=== PATIENT | female | born 1950 | race Two or more races ===

== ENCOUNTER → 2022-07-04 | Day surgery (SDC) | payer OTHER ==
[~2022-07-04] VITALS: Ht 154.9 cm; Wt 74.8 kg
[~2022-07-04] MED LIST: ESCI-34 PO; PANT40TA2 PO; PREDPOW63 PO
== END | disposition home or self-care (01) ==
LOC: SUR 06:02 → EDUNIT# 06:45
PROVIDERS: ATTEND Orthopaedic Surgery
DX: M16.10 Unilateral primary osteoarthritis, unspecified hip (principal); Z53.8 Procedure and treatment not carried out for other reasons; Z20.822 Contact with and (suspected) exposure to COVID-19
CPT/HCPCS: 86850; 86900; 86901; U0003

== ENCOUNTER 2022-08-15 07:24 | Inpatient (IN) | payer OTHER ==
[~2022-08-15] VITALS: Ht 154.9 cm; Wt 81.0 kg
[2022-08-15] MEDS ORDERED: ceFAZolin 1GM/50ML 100 ML IV ONE (07:35)
[2022-08-15] MEDS ORDERED: BUPIVACAINE 0.25% INJ 50ML VIAL ONE (08:38)
[2022-08-15] MEDS ORDERED: EPINEPHrine HCL 1 MG/1 ML AMP ONE (08:38)
[2022-08-15] MEDS ORDERED: TRANEXAMIC ACID 20 ML ONE (08:38)
[2022-08-15] MEDS ORDERED: VANCOMYCIN HCL 1000 MG VL ONE (08:39)
[2022-08-15] MEDS ORDERED: KETOROLAC TROMETH 30 MG/ML 1ML VIAL ONE (08:45)
[2022-08-15] MEDS ORDERED: MORPHINE SULF PF 5 MG/10 ML VIAL ONE (08:53)
[2022-08-15] MEDS ORDERED: fentaNYL CITRATE 100 MCG/2 ML VL ONE (09:15)
[2022-08-15] MEDS ORDERED: MIDAZOLAM HCL 2MG/2ML 2ml VIAL (1mg/ml) ONE ×2 (09:16→10:11)
[2022-08-15] MEDS ORDERED: TETRACAINE 1% INJ 2 ML VIAL IJ ONE (09:17)
[2022-08-15] MEDS ORDERED: DexAMETHasone SOD PHOS 10MG/1ML VIAL INJ ONE (10:00)
[2022-08-15] MEDS ORDERED: PROPOFOL 10 MG/ML 20 ML IV ONE (10:00)
[2022-08-15] MEDS ORDERED: MORPHINE SULFATE 4 MG/ML SYR/VIAL IV PRN (10:45)
[2022-08-15] MEDS ORDERED: ONDANSETRON HCL 4 MG/2 ML VIAL IV PRN ×2 (10:45→11:30)
[2022-08-15] MEDS ORDERED: HYDROmorphone HCL 2 MG/ML VL/or syr IV PRN (10:45)
[2022-08-15] MEDS ORDERED: ePHEDrine SULFATE 50 MG/ML AMP IV PRN (10:45)
[2022-08-15] MEDS ORDERED: MIDAZOLAM HCL 2MG/2ML 2ml VIAL (1mg/ml) IV PRN (10:45)
[2022-08-15] MEDS ORDERED: LABETALOL HCL 5 MG/ML 4ML SYRINGE IV PRN (10:45)
[2022-08-15] MEDS ORDERED: MORPHINE SULFATE INJ 2 MG/ml SYRG IV PRN (11:30)
[2022-08-15] MEDS ORDERED: NITROGLYCERIN 0.4 MG SL TAB SL PRN (11:30)
[2022-08-15] MEDS ORDERED: oxyCODONE HCL 5MG TAB PO PRN ×2 (11:30)
[2022-08-15] MEDS: ACETAMINOPHEN 325 MG TAB PO SCH ×3 (12:00→23:52)
[2022-08-15] MEDS: SODIUM CHLORIDE 0.9% 1,000 ML IV SCH ×2 (12:00→16:47)
[2022-08-15 13:00] VITALS: BP 138/74
[2022-08-15] MEDS: methylPREDNISolone SOD SUCC 125 MG/2 ML VL IV SCH ×2 (14:00→22:42)
[2022-08-15 16:32] VITALS: BP 123/60
[2022-08-15] MEDS: ceFAZolin 2 GM/D5W100ml 100 ML IV SCH ×2 (17:45→22:41)
[2022-08-15] MEDS ORDERED: Escitalopram 20 MG TAB PO SCH (22:00)
[2022-08-15] MEDS: PREGABALIN 25 MG CAP PO SCH (22:42)
[2022-08-16 00:58] VITALS: BP 110/53
[2022-08-16] MEDS: SODIUM CHLORIDE 0.9% 1,000 ML IV SCH ×2 (02:00→09:33)
[2022-08-16 05:23] VITALS: BP 110/51
[2022-08-16 06:14] LABS: Basophils # (auto) 0 10 ^3/uL (0-0.2); Basophils % (auto) 0.1 % (0.0-2.0); Eosinophils # (auto) 0 10 ^3/uL (0-0.8); Hematocrit 27.1 % (36.0-46.0); Lymphocytes # (auto) 0.5 10 ^3/uL (0.4-5.4); Lymphocytes % (auto) 5.9 % (10.0-50.0); Mean Corpuscular Hemoglobin 29.5 pg (28.0-32.0); Mean Corpuscular Hgb Conc. 33.3 g/dL (32.0-36.0); Mean Corpuscular Volume 88.6 fL (80.0-100.0); Monocytes # (auto) 0.4 10 ^3/uL (0-1.3); Monocytes % (auto) 5.2 % (0.0-12.0); Neutrophils # (auto) 7.5 10 ^3/uL (1.6-8.6); Neutrophils % (auto) 88.8 % (37.0-80.0); Red Blood Cells 3.06 10^6/uL (4.0-5.20); Red Cell Distribution Width 15.2 % (11.8-14.3); White Blood Cell 8.4 10^3/uL (4.4-10.8)
[2022-08-16 06:34] LABS: BUN/Creatinine Ratio 24.7 (10.0-20.0); Calcium 8.1 mg/dL (8.5-10.1); Potassium 3.7 mmol/L (3.5-5.1)
[2022-08-16] MEDS: methylPREDNISolone SOD SUCC 125 MG/2 ML VL IV SCH (06:53)
[2022-08-16] MEDS: ACETAMINOPHEN 325 MG TAB PO SCH ×2 (06:57→11:53)
[2022-08-16 09:00] VITALS: BP 100/48
[2022-08-16] MEDS: PREGABALIN 25 MG CAP PO SCH (09:51)
[2022-08-16] MEDS ORDERED: APIXABAN 2.5 MG TAB PO SCH (10:00)
[2022-08-16] MEDS ORDERED: PANTOPRAZOLE 40 MG TAB PO SCH (10:00)
[2022-08-16] MEDS ORDERED: predniSONE 5 MG TAB PO SCH (10:00)
[2022-08-16 13:00] VITALS: BP 114/56
== END 2022-08-16 14:27 | disposition home health service (06) | DRG 470 ==
LOC: SUR 07:24 → OVERFLOW 11:22 → WEST WING 13:25
PROVIDERS: ADMIT Orthopaedic Surgery; ATTEND Hospitalist
PROC: 0SR906Z Replacement of Right Hip Joint with Oxidized Zirconium on Polyethylene Synthetic Substitute, Open Approach (ICD-10-PCS; principal; 2022-08-15 09:17)
DX: M16.11 Unilateral primary osteoarthritis, right hip (principal); Z88.2 Allergy status to sulfonamides; Z88.5 Allergy status to narcotic agent; Z79.899 Other long term (current) drug therapy
CPT/HCPCS: 36415; 72170; 73502; 80048; 85025; 86850; 86900; 86901; 97110; 97116; 97163; 97530; G0378; J0171; J0690; J1100; J1885; J2250; J2704; J3490